=== PATIENT | male | born 1960 | race American Indian/Alaskan Native ===

== ENCOUNTER 2018-03-24 13:52 | Emergency (ER) | payer MEDICAID, OTHER, SELFPAY ==
[2018-03-24 14:12] VITALS: BP 122/68; PULSE 85; RESP 18; TEMP 36.2; O2SAT 99; BMI 25.0
--- NOTE | 2018-03-24 18:01 | ED.BACK ---
HPI - Back Pain/Injury <LEXIE León - Last Filed: 03/24/18 22:14> General Chief Complaint: Back Pain/Injury Stated Complaint: Bad Back Pain and in R Leg Time Seen by Provider: 03/24/18 18:01 Source: patient Mode of arrival: ambulatory Limitations: no limitations History of Present Illness HPI Narrative: 57-year-old male with history of chronic lower back pain and is an everyday smoker here for complaint of having right-sided lower back pain earlier today. He denies any trauma to the back. He states that he was walking when he generated pain into the back area that caused him to have to bend over to relieve the pain. He denies any loss of bladder or bowel control. He states that the symptoms have resolved since he has been in the emergency room. He denies any recent strenuous activity. He is ambulatory into the emergency room. He also states that he had pain into his right calf area on off over the past year. He states he had increased pain last night. No trauma to the right calf area. No shortness of breath no chest pain. He denies any recent hospitalizations. no recent surgeries. No recent travel. Related Data Previous Rx's Medication Instructions Recorded hydrocodone-acetaminophen [[place]] 1 - 2 tab PO Q6HP PRN 10 Days #0 07/27/17 tab ibuprofen 600 mg PO Q6HP PRN #20 tab 07/27/17 cyclobenzaprine 10 mg PO TID PRN #10 tab 03/24/18 Allergies Allergy/AdvReac Type Severity Reaction Status Date / Time No Known Allergies Allergy Uncoded 03/24/18 14:18 Review of Systems <LEXIE León - Last Filed: 03/24/18 22:14> Constitutional Denies chills, Denies fever(s), Denies lethargy and Denies weakness ENT Ears, Nose, Mouth, and Throat: Denies change in voice, Denies neck pain and Denies sore throat Cardiovascular Denies chest pain, Denies irregular heart rhythm, Denies lightheadedness, Denies palpitations, Denies dyspnea, Denies dyspnea on exertion and Denies orthopnea Respiratory Denies cough, Denies dyspnea, Denies dyspnea on exertion and Denies wheezing Gastrointestinal Gastrointestinal: Denies abdominal pain, Denies change in bowel habits, Denies diarrhea, Denies nausea and Denies vomiting Genitourinary Denies hematuria, Denies flank pain, Denies urinary incontinence and Denies urinary urgency Musculoskeletal Denies neck pain Comments: pain into right lower back and to right calf Integumentary/Breasts Denies pruritus, Denies erythema, Denies rash and Denies wounds Neurologic Denies confusion and Denies weakness Psychiatric Denies anxiety, Denies confusion, Denies depression, Denies homicidal ideation and Denies suicidal ideation Endocrine Denies palpitations Hematologic/Lymphatic Denies easy bruising Allergic/Immunologic Denies wheezing Exam <LEXIE León - Last Filed: 03/24/18 22:14> Initial Vital Signs Initial Vital Signs: Vital Signs Temperature 97.2 F L 03/24/18 14:12 Pulse Rate 85 03/24/18 14:12 Respiratory Rate 18 03/24/18 14:12 Blood Pressure 122/68 03/24/18 14:12 Pulse Oximetry 99 03/24/18 14:12 Const General: cooperative and well developed Nutritional Appearance: well nourished Orientation: alert, awake, oriented x3 and not confused HENMT Mouth: oral mucosae normal and moist mucous membranes Eyes Conjunctivae: conjunctivae normal Sclera: sclerae normal Pupils: PERRL EOM: EOM intact bilaterally Resp Effort & Inspection: normal respiratory effort, able to speak in complete sentences, no respiratory distress and no use of accessory muscles Auscultation: clear to auscultation bilaterally, no rales, no rhonchi and no wheezes Cardio Rate: regular rate Rhythm: regular rhythm Heart Sounds: no click, no gallops, no murmurs and no rubs Pulses: normal peripheral pulses GI Inspection: non-distended Palpation: soft, no hepatosplenomegaly, No guarding, No pulsatile mass and No tender Auscultation: normal bowel sounds Back/Spine/Pelvis Other: tenderness to the right paraspinals. No midline tenderness. No signs of trauma. Skin General: no rashes or lesions noted, No jaundice and No petechiae Neuro General: alert, oriented x3, gait normal and no focal motor deficits Speech: speech normal Extrem General: full ROM, no clubbing, cyanosis or edema, no pedal edema and no calf tenderness <Daniel Zheng DO - Last Filed: 03/24/18 23:19> Initial Vital Signs Initial Vital Signs: Vital Signs Temperature 97.2 F L 03/24/18 14:12 Pulse Rate 85 03/24/18 14:12 Respiratory Rate 18 03/24/18 14:12 Blood Pressure 122/68 03/24/18 14:12 Pulse Oximetry 99 03/24/18 14:12 Course <LEXIE León - Last Filed: 03/24/18 22:14> Orders Ordered: ED Orders 03/24/18 16:49 Complete Blood Count AUTO DIFF Stat Comprehensive Metabolic Panel Stat 03/24/18 18:20 periph venous low extrem rt Stat Vital Signs - 8 hr 03/24/18 14:12 Temperature 97.2 F L Pulse Rate 85 Respiratory Rate 18 Blood Pressure 122/68 Pulse Oximetry 99 <Daniel Zheng DO - Last Filed: 03/24/18 23:19> Orders Ordered: ED Orders 03/24/18 16:49 Complete Blood Count AUTO DIFF Stat Comprehensive Metabolic Panel Stat 03/24/18 18:20 perip venous low extrem rt Stat Vital Signs - 8 hr 03/24/18 14:12 Temperature 97.2 F L Pulse Rate 85 Respiratory Rate 18 Blood Pressure 122/68 Pulse Oximetry 99 MDM - Back Pain/Injury <LEXIE León - Last Filed: 03/24/18 22:14> Lab Data Result diagrams: 03/24/18 16:49 03/24/18 16:49 Lab Results 03/24/18 03/24/18 Range/Units 16:49 16:49 WBC 6.5 (4.5-11.0) X10^3/uL RBC 4.25 L (4.5-5.9) X10^6/uL Hgb 14.2 (13.5-17.5) g/dL Hct 41.0 (41-53) % MCV 96.4 (80-100) fL MCH 33.4 (26-34) PG MCHC 34.6 (30-36) % RDW 12.6 (11.6-14.8) % Plt Count 318 (150-400) X10^3/uL Neut % (Auto) 47.2 L (50-75) % Lymph % (Auto) 37.3 (25-40) % [place] % (Auto) 11.8 (3-14) % Eos % (Auto) 3.0 (2-4) % Baso % (Auto) 0.7 (0-2) % Neut # (Auto) 3100 (2648-1234) /uL Sodium 137 (137-145) mmol/L Potassium 4.0 (3.4-5.1) mmol/L Chloride 99 (98-107) mmol/L Carbon Dioxide 25 (22-32) mmol/L BUN 11 (9-20) mg/dL Creatinine 0.80 (0.66-1.25) mg/dL Estimated GFR > 60.0 (>60) mL/min BUN/Creatinine Ratio 13.8 (6-22) Glucose 100 (70-100) mg/dL Calcium 9.6 (8.4-10.2) mg/dL Total Bilirubin 0.6 (0.2-1.3) mg/dL AST 55 (17-59) IU/L ALT 51 (21-72) IU/L Alkaline Phosphatase 52 (38-126) U/L Total Protein 8.1 (6.3-8.2) g/dL Albumin 4.8 (3.5-5.0) g/dL Globulin 3.3 (1.7-4.1) g/dL Albumin/Globulin Ratio 1.5 (1.0-2.8) Imaging Data Venous US: Radiologist's impression: [place] [address] Ultrasound Report Signed Patient: Guero Christensen CMR#: [id number] : 1Acct:[id number] Age/Sex: 57 / MDate of Service: 03/24/18 Loc: ED Accession Number: [id number] Procedure: US periph venous low extrem rt Ordering Provider: Luis Mckeon PROCEDURE: US PERIPH VENOUS LOW EXTREM RT INDICATIONS: CALF PAIN TECHNIQUE: Real-time imaging, as well as color and pulse Doppler interrogation, were performed of the lower extremity deep veins from the inguinal ligament to the popliteal fossa. COMPARISON: None. FINDINGS: The deep veins of the right lower extremity are normally compressible, and free of intraluminal thrombus. Color and pulse Doppler demonstrate normal phasic intraluminal flow. There is normal augmentation response to distal compression maneuver. IMPRESSION: No deep venous thrombosis of the right lower extremity. Dictated by: Marquez Garcia M.D. on 03/24/2018 at 19:45 Approved by: Marquez Garcia M.D. on 03/24/2018 at 19:47 MDM Narrative Medical decision making narrative: CBC and Chem panel were obtained were unremarkable. Ultrasound of right lower extremity was obtained was negative for any blood clots. symptoms presents as strain of the lumbar right paraspinals and cramp the the over right lower extremity. Patient is directed to ensure he is drinking plenty of fluids. [id number] ibuprofen as needed for any discomfort. Cyclobenzaprine is prescribed to help with any muscle spasm to the right lower back pain. follow up with primary care provider next week for repeat evaluation. For any worsening symptoms return emergency room. <Daniel Zheng DO - Last Filed: 03/24/18 23:19> Lab Data Lab Results 03/24/18 03/24/18 Range/Units 16:49 16:49 WBC 6.5 (4.5-11.0) X10^3/uL RBC 4.25 L (4.5-5.9) X10^6/uL Hgb 14.2 (13.5-17.5) g/dL Hct 41.0 (41-53) % MCV 96.4 (80-100) fL MCH 33.4 (26-34) PG MCHC 34.6 (30-36) % RDW 12.6 (11.6-14.8) % Plt Count 318 (150-400) X10^3/uL Neut % (Auto) 47.2 L (50-75) % Lymph % (Auto) 37.3 (25-40) % [place] % (Auto) 11.8 (3-14) % Eos % (Auto) 3.0 (2-4) % Baso % (Auto) 0.7 (0-2) % Neut # (Auto) 3100 (9732-5435) /uL Sodium 137 (137-145) mmol/L Potassium 4.0 (3.4-5.1) mmol/L Chloride 99 (98-107) mmol/L Carbon Dioxide 25 (22-32) mmol/L BUN 11 (9-20) mg/dL Creatinine 0.80 (0.66-1.25) mg/dL Estimated GFR > 60.0 (>60) mL/min BUN/Creatinine Ratio 13.8 (6-22) Glucose 100 (70-100) mg/dL Calcium 9.6 (8.4-10.2) mg/dL Total Bilirubin 0.6 (0.2-1.3) mg/dL AST 55 (17-59) IU/L ALT 51 (21-72) IU/L Alkaline Phosphatase 52 (38-126) U/L Total Protein 8.1 (6.3-8.2) g/dL Albumin 4.8 (3.5-5.0) g/dL Globulin 3.3 (1.7-4.1) g/dL Albumin/Globulin Ratio 1.5 (1.0-2.8) Discharge Plan Departure Patient Disposition: Home Clinical Impression: Low back pain Discharge Date/Time: 03/24/18 20:19 Interventions: ED Discharge Assessment Last Done: 03/24/18 20:18 Instructions: DI for Low Back Pain Activity Restrictions/Additional Instructions: laboratory worse results today were unremarkable. Ultrasound right lower extremity was obtained was negative for any blood clots. Lower back pain presents as a low back strain with muscle spasm. you are prescribed a muscle relaxer called cyclobenzaprine use as directed. No driving while on the muscle relaxers a can make you drowsy. Use [id number] ibuprofen for anti-inflammatory effects. Right lower extremity pain presents as on and off cramp Make sure you are drinking plenty of fluids. Follow up with her primary care provider next week. For any worsening symptoms return to the emergency room. Prescriptions: New cyclobenzaprine 10 mg tablet 10 mg PO TID PRN (Reason: muscle spasm) Qty: 10 RF: 0 No Action hydrocodone-acetaminophen [[place]] 5 MG/325 MG tablet 1 - 2 tab PO Q6HP PRN10 Days Qty: 0 RF: 0 ibuprofen 600 MG tablet 600 mg PO Q6HP PRNQty: 20 RF: 0 Referrals: [facility] [Provider Group] Provider,Conversion [Non-Staff] - <Daniel Zheng DO - Last Filed: 03/24/18 23:19> Cosign ED Attending Catrina Attestation: I was immediately available in the department for consultation. Documentation has been reviewed. I agree with assessment and plan.
--- NOTE | 2018-03-24 18:14 | ED_ITS ---
HPI - Back Pain/Injury <LEXIE León - Last Filed: 03/24/18 22:14> General Chief Complaint: Back Pain/Injury Stated Complaint: Bad Back Pain and in R Leg Time Seen by Provider: 03/24/18 18:01 Source: patient Mode of arrival: ambulatory Limitations: no limitations History of Present Illness HPI Narrative: 57-year-old male with history of chronic lower back pain and is an everyday smoker here for complaint of having right-sided lower back pain earlier today. He denies any trauma to the back. He states that he was walking when he generated pain into the back area that caused him to have to bend over to relieve the pain. He denies any loss of bladder or bowel control. He states that the symptoms have resolved since he has been in the emergency room. He denies any recent strenuous activity. He is ambulatory into the emergency room. He also states that he had pain into his right calf area on off over the past year. He states he had increased pain last night. No trauma to the right calf area. No shortness of breath no chest pain. He denies any recent hospitalizations. no recent surgeries. No recent travel. Related Data Previous Rx's Medication Instructions Recorded hydrocodone-acetaminophen [[place]] 1 - 2 tab PO Q6HP PRN 10 Days #0 07/27/17 tab ibuprofen 600 mg PO Q6HP PRN #20 tab 07/27/17 cyclobenzaprine 10 mg PO TID PRN #10 tab 03/24/18 Allergies Allergy/AdvReac Type Severity Reaction Status Date / Time No Known Allergies Allergy Uncoded 03/24/18 14:18 Review of Systems <LEXIE León - Last Filed: 03/24/18 22:14> Constitutional Denies chills, Denies fever(s), Denies lethargy and Denies weakness ENT Ears, Nose, Mouth, and Throat: Denies change in voice, Denies neck pain and Denies sore throat Cardiovascular Denies chest pain, Denies irregular heart rhythm, Denies lightheadedness, Denies palpitations, Denies dyspnea, Denies dyspnea on exertion and Denies orthopnea Respiratory Denies cough, Denies dyspnea, Denies dyspnea on exertion and Denies wheezing Gastrointestinal Gastrointestinal: Denies abdominal pain, Denies change in bowel habits, Denies diarrhea, Denies nausea and Denies vomiting Genitourinary Denies hematuria, Denies flank pain, Denies urinary incontinence and Denies urinary urgency Musculoskeletal Denies neck pain Comments: pain into right lower back and to right calf Integumentary/Breasts Denies pruritus, Denies erythema, Denies rash and Denies wounds Neurologic Denies confusion and Denies weakness Psychiatric Denies anxiety, Denies confusion, Denies depression, Denies homicidal ideation and Denies suicidal ideation Endocrine Denies palpitations Hematologic/Lymphatic Denies easy bruising Allergic/Immunologic Denies wheezing Exam <LEXIE León - Last Filed: 03/24/18 22:14> Initial Vital Signs Initial Vital Signs: Vital Signs Temperature 97.2 F L 03/24/18 14:12 Pulse Rate 85 03/24/18 14:12 Respiratory Rate 18 03/24/18 14:12 Blood Pressure 122/68 03/24/18 14:12 Pulse Oximetry 99 03/24/18 14:12 Const General: cooperative and well developed Nutritional Appearance: well nourished Orientation: alert, awake, oriented x3 and not confused HENMT Mouth: oral mucosae normal and moist mucous membranes Eyes Conjunctivae: conjunctivae normal Sclera: sclerae normal Pupils: PERRL EOM: EOM intact bilaterally Resp Effort & Inspection: normal respiratory effort, able to speak in complete sentences, no respiratory distress and no use of accessory muscles Auscultation: clear to auscultation bilaterally, no rales, no rhonchi and no wheezes Cardio Rate: regular rate Rhythm: regular rhythm Heart Sounds: no click, no gallops, no murmurs and no rubs Pulses: normal peripheral pulses GI Inspection: non-distended Palpation: soft, no hepatosplenomegaly, No guarding, No pulsatile mass and No tender Auscultation: normal bowel sounds Back/Spine/Pelvis Other: tenderness to the right paraspinals. No midline tenderness. No signs of trauma. Skin General: no rashes or lesions noted, No jaundice and No petechiae Neuro General: alert, oriented x3, gait normal and no focal motor deficits Speech: speech normal Extrem General: full ROM, no clubbing, cyanosis or edema, no pedal edema and no calf tenderness <Daniel Zheng DO - Last Filed: 03/24/18 23:19> Initial Vital Signs Initial Vital Signs: Vital Signs Temperature 97.2 F L 03/24/18 14:12 Pulse Rate 85 03/24/18 14:12 Respiratory Rate 18 03/24/18 14:12 Blood Pressure 122/68 03/24/18 14:12 Pulse Oximetry 99 03/24/18 14:12 Course <LEXIE León - Last Filed: 03/24/18 22:14> Orders Ordered: ED Orders 03/24/18 16:49 Complete Blood Count AUTO DIFF Stat Comprehensive Metabolic Panel Stat 03/24/18 18:20 periph venous low extrem rt Stat Vital Signs - 8 hr 03/24/18 14:12 Temperature 97.2 F L Pulse Rate 85 Respiratory Rate 18 Blood Pressure 122/68 Pulse Oximetry 99 <Daniel Zheng DO - Last Filed: 03/24/18 23:19> Orders Ordered: ED Orders 03/24/18 16:49 Complete Blood Count AUTO DIFF Stat Comprehensive Metabolic Panel Stat 03/24/18 18:20 perip venous low extrem rt Stat Vital Signs - 8 hr 03/24/18 14:12 Temperature 97.2 F L Pulse Rate 85 Respiratory Rate 18 Blood Pressure 122/68 Pulse Oximetry 99 MDM - Back Pain/Injury <LEXIE León - Last Filed: 03/24/18 22:14> Lab Data Result diagrams: 03/24/18 16:49 03/24/18 16:49 Lab Results 03/24/18 03/24/18 Range/Units 16:49 16:49 WBC 6.5 (4.5-11.0) X10^3/uL RBC 4.25 L (4.5-5.9) X10^6/uL Hgb 14.2 (13.5-17.5) g/dL Hct 41.0 (41-53) % MCV 96.4 (80-100) fL MCH 33.4 (26-34) PG MCHC 34.6 (30-36) % RDW 12.6 (11.6-14.8) % Plt Count 318 (150-400) X10^3/uL Neut % (Auto) 47.2 L (50-75) % Lymph % (Auto) 37.3 (25-40) % [place] % (Auto) 11.8 (3-14) % Eos % (Auto) 3.0 (2-4) % Baso % (Auto) 0.7 (0-2) % Neut # (Auto) 3100 (8891-0262) /uL Sodium 137 (137-145) mmol/L Potassium 4.0 (3.4-5.1) mmol/L Chloride 99 (98-107) mmol/L Carbon Dioxide 25 (22-32) mmol/L BUN 11 (9-20) mg/dL Creatinine 0.80 (0.66-1.25) mg/dL Estimated GFR > 60.0 (>60) mL/min BUN/Creatinine Ratio 13.8 (6-22) Glucose 100 (70-100) mg/dL Calcium 9.6 (8.4-10.2) mg/dL Total Bilirubin 0.6 (0.2-1.3) mg/dL AST 55 (17-59) IU/L ALT 51 (21-72) IU/L Alkaline Phosphatase 52 (38-126) U/L Total Protein 8.1 (6.3-8.2) g/dL Albumin 4.8 (3.5-5.0) g/dL Globulin 3.3 (1.7-4.1) g/dL Albumin/Globulin Ratio 1.5 (1.0-2.8) Imaging Data Venous US: Radiologist's impression: [place] [address] Ultrasound Report Signed Patient: Guero Christensen CMR#: [id number] : 1Acct:[id number] Age/Sex: 57 / MDate of Service: 03/24/18 Loc: ED Accession Number: [id number] Procedure: US periph venous low extrem rt Ordering Provider: Luis Mckeon PROCEDURE: US PERIPH VENOUS LOW EXTREM RT INDICATIONS: CALF PAIN TECHNIQUE: Real-time imaging, as well as color and pulse Doppler interrogation, were performed of the lower extremity deep veins from the inguinal ligament to the popliteal fossa. COMPARISON: None. FINDINGS: The deep veins of the right lower extremity are normally compressible , and free of intraluminal thrombus. Color and pulse Doppler demonstrate normal phasic intraluminal flow. There is normal augmentation response to distal compression maneuver. IMPRESSION: No deep venous thrombosis of the right lower extremity. Dictated by: Marquez Garcia M.D. on 03/24/2018 at 19:45 Approved by: Marquez Garcia M.D. on 03/24/2018 at 19:47 MDM Narrative Medical decision making narrative: CBC and Chem panel were obtained were unremarkable. Ultrasound of right lower extremity was obtained was negative for any blood clots. symptoms presents as strain of the lumbar right paraspinals and cramp the the over right lower extremity. Patient is directed to ensure he is drinking plenty of fluids. [id number] ibuprofen as needed for any discomfort. Cyclobenzaprine is prescribed to help with any muscle spasm to the right lower back pain. follow up with primary care provider next week for repeat evaluation. For any worsening symptoms return emergency room. <Daniel Zheng DO - Last Filed: 03/24/18 23:19> Lab Data Lab Results 03/24/18 03/24/18 Range/Units 16:49 16:49 WBC 6.5 (4.5-11.0) X10^3/uL RBC 4.25 L (4.5-5.9) X10^6/uL Hgb 14.2 (13.5-17.5) g/dL Hct 41.0 (41-53) % MCV 96.4 (80-100) fL MCH 33.4 (26-34) PG MCHC 34.6 (30-36) % RDW 12.6 (11.6-14.8) % Plt Count 318 (150-400) X10^3/uL Neut % (Auto) 47.2 L (50-75) % Lymph % (Auto) 37.3 (25-40) % [place] % (Auto) 11.8 (3-14) % Eos % (Auto) 3.0 (2-4) % Baso % (Auto) 0.7 (0-2) % Neut # (Auto) 3100 (8384-0182) /uL Sodium 137 (137-145) mmol/L Potassium 4.0 (3.4-5.1) mmol/L Chloride 99 (98-107) mmol/L Carbon Dioxide 25 (22-32) mmol/L BUN 11 (9-20) mg/dL Creatinine 0.80 (0.66-1.25) mg/dL Estimated GFR > 60.0 (>60) mL/min BUN/Creatinine Ratio 13.8 (6-22) Glucose 100 (70-100) mg/dL Calcium 9.6 (8.4-10.2) mg/dL Total Bilirubin 0.6 (0.2-1.3) mg/dL AST 55 (17-59) IU/L ALT 51 (21-72) IU/L Alkaline Phosphatase 52 (38-126) U/L Total Protein 8.1 (6.3-8.2) g/dL Albumin 4.8 (3.5-5.0) g/dL Globulin 3.3 (1.7-4.1) g/dL Albumin/Globulin Ratio 1.5 (1.0-2.8) Discharge Plan Departure Patient Disposition: Home Clinical Impression: Low back pain Discharge Date/Time: 03/24/18 20:19 Interventions: ED Discharge Assessment Last Done: 03/24/18 20:18 Instructions: DI for Low Back Pain Activity Restrictions/Additional Instructions: laboratory worse results today were unremarkable. Ultrasound right lower extremity was obtained was negative for any blood clots. Lower back pain presents as a low back strain with muscle spasm. you are prescribed a muscle relaxer called cyclobenzaprine use as directed. No driving while on the muscle relaxers a can make you drowsy. Use [id number] ibuprofen for anti- inflammatory effects. Right lower extremity pain presents as on and off cramp Make sure you are drinking plenty of fluids. Follow up with her primary care provider next week. For any worsening symptoms return to the emergency room. Prescriptions: New cyclobenzaprine 10 mg tablet 10 mg PO TID PRN (Reason: muscle spasm) Qty: 10 RF: 0 No Action hydrocodone-acetaminophen [[place]] 5 MG/325 MG tablet 1 - 2 tab PO Q6HP PRN10 Days Qty: 0 RF: 0 ibuprofen 600 MG tablet 600 mg PO Q6HP PRNQty: 20 RF: 0 Referrals: [facility] [Provider Group] Provider,Conversion [Non-Staff] - <Daniel Zheng DO - Last Filed: 03/24/18 23:19> Cosign ED Attending Catrina Attestation: I was immediately available in the department for consultation. Documentation has been reviewed. I agree with assessment and plan.
--- NOTE | 2018-03-24 18:20 | DI.US.S_ITS ---
PROCEDURE: US PERIPH VENOUS LOW EXTREM RT INDICATIONS: CALF PAIN TECHNIQUE: Real-time imaging, as well as color and pulse Doppler interrogation, were performed of the lower extremity deep veins from the inguinal ligament to the popliteal fossa. COMPARISON: None. FINDINGS: The deep veins of the right lower extremity are normally compressible, and free of intraluminal thrombus. Color and pulse Doppler demonstrate normal phasic intraluminal flow. There is normal augmentation response to distal compression maneuver. IMPRESSION: No deep venous thrombosis of the right lower extremity. Dictated by: Marquez Garcia M.D. on 03/24/2018 at 19:45 Approved by: Marquez Garcia M.D. on 03/24/2018 at 19:47
[2018-03-24 19:09] LABS: Add Manual Diff / Slide Review NO; Basophils Percent Auto 0.7 % (0-2); Hemoglobin 14.2 g/dL (13.5-17.5); Lymphocytes Percent Auto 37.3 % (25-40); Mean Corpuscular HGB Conc 34.6 % (30-36); Mean Corpuscular Hemoglobin 33.4 PG (26-34); Mean Corpuscular Volume 96.4 fL (80-100); Monocytes Percent Auto 11.8 % (3-14); Neutrophils Absolute Auto 3100 /uL (3000-5900); Neutrophils Percent Auto 47.2 % (50-75); Platelet Count 318 X10^3/uL (150-400); Red Blood Cell Count 4.25 X10^6/uL (4.5-5.9); Red Cell Distribution Width 12.6 % (11.6-14.8); White Blood Cell Count 6.5 X10^3/uL (4.5-11.0)
[2018-03-24 19:26] LABS: Alanine Aminotransferase 51 IU/L (21-72); Albumin 4.8 g/dL (3.5-5.0); Albumin Globulin Ratio 1.5 (1.0-2.8); Alkaline Phosphatase 52 U/L (38-126); Aspartate Aminotransferase 55 IU/L (17-59); BUN Creatinine Ratio 13.8 (6-22); Bilirubin Total 0.6 mg/dL (0.2-1.3); Blood Urea Nitrogen 11 mg/dL (9-20); Calcium 9.6 mg/dL (8.4-10.2); Carbon Dioxide 25 mmol/L (22-32); Chloride 99 mmol/L (98-107); Estimated Glomerular Filt Rate > 60.0 mL/min (>60); Globulin 3.3 g/dL (1.7-4.1); Glucose 100 mg/dL (70-100); HEMOLYSIS < 15 (0-50); Sodium 137 mmol/L (137-145); Total Protein 8.1 g/dL (6.3-8.2)
== END 2018-03-24 20:19 | disposition home or self-care (01) ==
PROVIDERS: Emergency Provider Nurse Practitioner Family
DX: M54.5 Low back pain (principal)
CPT/HCPCS: 80053; 85025; 93971; 99282; 99284